=== PATIENT | female | born 1955 | race Caucasian/White ===

== ENCOUNTER 2016-07-26 04:59 | Day surgery (SDC) | payer OTHER ==
[~2016-07-26] VITALS: Ht 172.7 cm; Wt 71.9 kg
[2016-07-26] MEDS ORDERED: SODIUM CHLORIDE 0.9% 1,000ML IVBOLUS ONE (05:30)
[2016-07-26] MEDS ORDERED: MORPHINE SULFATE 4 MG/ML, 1ML IVPush PRN (05:30)
[2016-07-26] MEDS ORDERED: ONDANSETRON 2MG/ML, 2ML IVPush ONE (05:30)
[2016-07-26] MEDS ORDERED: SODIUM CHLORIDE FLUSH 10ML SYR IVF ONE (05:30)
[2016-07-26] MEDS ORDERED: MORPHINE SULFATE 4 MG/ML, 1ML ONE (05:37)
[2016-07-26] MEDS ORDERED: ONDANSETRON 2MG/ML, 2ML ONE ×2 (05:37→11:10)
[2016-07-26 06:13] LABS: BLOOD UREA NITROGEN 13 mg/dL (7-18)
[2016-07-26] MEDS ORDERED: OMNIPAQUE 350 MG/ML, 100ML BOTTLE ONE (06:29)
[2016-07-26] MEDS ORDERED: CEFOTETAN PMX 1GM/50ML 50 ML IV ONE (07:00)
[2016-07-26] MEDS ORDERED: CEFOTETAN PMX 1GM/50ML 50 ML ONE (07:06)
[2016-07-26] MEDS ORDERED: SODIUM CHLORIDE 0.9% 1,000 ML IV ONE (07:27)
[2016-07-26] MEDS ORDERED: ONDANSETRON 2MG/ML, 2ML IVPush PRN ×3 (07:30→12:00)
[2016-07-26] MEDS ORDERED: HYDROmorphone 1 MG/ML, 1ML IVPush PRN (07:30)
[2016-07-26] MEDS ORDERED: SODIUM CHLORIDE FLUSH 10ML SYR IVF PRN (07:30)
[2016-07-26 08:19] VITALS: BP 122/74
[2016-07-26] MEDS ORDERED: SCOPOLAMINE PATCH, 1.5MG PATCH.TD72 TD ONE ×2 (08:43→10:58)
[2016-07-26 09:40] VITALS: BP 122/74
[2016-07-26] MEDS ORDERED: FENTANYL PF 250 MCG/5ML ONE (10:19)
[2016-07-26] MEDS ORDERED: MIDAZOLAM 1 MG/ML, 2ML ONE (10:19)
[2016-07-26] MEDS ORDERED: BUPIVACAINE/PF-EPI 0.5% 1:200K ONE (10:42)
[2016-07-26] MEDS ORDERED: BUPIVACAINE/PF-EPI 0.5% 1:200K INFIL ONE (10:51)
[2016-07-26] MEDS ORDERED: ACETAMINOPHEN 325 MG TABLET PO PRN (11:00)
[2016-07-26] MEDS ORDERED: HYDROcodone/APAP 7.5-325MG/15ML UDC PO PRN (11:00)
[2016-07-26] MEDS ORDERED: LABETALOL 5MG/ML, 20ML IV PRN (11:00)
[2016-07-26] MEDS ORDERED: hydrALAzine 20 MG/ML, 1ML IV PRN (11:00)
[2016-07-26] MEDS ORDERED: FENTANYL PF 100 MCG/2ML IV PRN (11:00)
[2016-07-26] MEDS ORDERED: PROMETHAZINE 25 MG/ML, 1ML IV PRN (11:00)
[2016-07-26] MEDS ORDERED: MEPERIDINE/PF 25MG/0.5ML IVPush PRN (11:00)
[2016-07-26] MEDS ORDERED: OXYcodone 5 MG/5 ML ORAL.SOL UDC PO PRN ×2 (11:00→12:00)
[2016-07-26] MEDS ORDERED: EPHEDRINE 50 MG/ML, 1ML IVPush PRN (11:00)
[2016-07-26] MEDS ORDERED: MIDAZOLAM 1 MG/ML, 2ML IV PRN (11:00)
[2016-07-26] MEDS ORDERED: HYDROmorphone 1 MG/ML, 1ML IV PRN (11:00)
[2016-07-26] MEDS ORDERED: PROPOFOL 10 MG/ML, 20ML ONE (11:10)
[2016-07-26] MEDS ORDERED: CEFOTETAN 2 GM ONE (11:10)
[2016-07-26] MEDS ORDERED: SUCCINYLCHOLINE 20 MG/ML, 10ML ONE (11:10)
[2016-07-26] MEDS ORDERED: ROCURONIUM 10 MG/ML ONE (11:10)
[2016-07-26] MEDS ORDERED: PROPOFOL 10 MG/ML, 50ML ONE (11:10)
[2016-07-26] MEDS ORDERED: KETOROLAC 30 MG/1 ML ONE (11:10)
[2016-07-26] MEDS ORDERED: DEXAMETHASONE 4 MG/ML, 1ML ONE (11:10)
[2016-07-26] MEDS ORDERED: SUGAMMADEX 200 MG/2 ML IVPush ONE (11:10)
[2016-07-26] MEDS ORDERED: LACTATED RINGERS 1,000 ML IV SCH (11:54)
[2016-07-26] MEDS ORDERED: DIPHENHYDRAMINE 50 MG/ML, 1ML IVPush PRN (12:00)
[2016-07-26] MEDS ORDERED: HYDROmorphone 2 MG/ML, 1ML IVPush PRN (12:00)
[2016-07-26 14:05] VITALS: BP 102/66
[2016-07-26] MEDS ORDERED: OXYC5CAP4 PO (14:11)
[2016-07-26] MEDS ORDERED: PROM25TA10 PO (14:13)
[2016-07-26 15:05] VITALS: BP 108/67
== END 2016-07-26 15:33 ==
LOC: ED 05:43 → EDIP 07:27 → OR 07:27 → UNDOADMIN 07:27 → 4NOR 08:18 → EDIP 08:18 → 4NOR 08:20 → OR 15:33 → UNDODISIN 15:33
PROVIDERS: ATTEND Surgery
DX: K35.80 Unspecified acute appendicitis (principal); K21.9 Gastro-esophageal reflux disease without esophagitis; Z88.8 Allergy status to other drugs, medicaments and biological substances
CPT/HCPCS: 36415; 44970; 74177; 80048; 81001; 82040; 83605; 85025; 87040; 87086; 88304; 93005; 96361; 96365; 96375; 99285; J0330; J1100; J1885; J2250; J2405; J2704; J3010; J7030; Q9967; S0074

== ENCOUNTER 2016-10-31 14:24 | Emergency (ER) | payer OTHER ==
[~2016-10-31] VITALS: Ht 172.7 cm; Wt 76.2 kg
[~2016-10-31 14:24] MED LIST: OXYC5CAP2 PO; PROM25TA10 PO
[2016-10-31 15:20] LABS: HEMATOCRIT 44.5 % (34.6-47.8); HEMOGLOBIN 15.2 g/dL (11.7-16.4)
[2016-10-31] MEDS ORDERED: SODIUM CHLORIDE 0.9% 1,000ML IVBOLUS ONE ×2 (15:30→16:30)
[2016-10-31] MEDS ORDERED: ONDANSETRON 2MG/ML, 2ML IVPush ONE (15:30)
[2016-10-31] MEDS ORDERED: SODIUM CHLORIDE FLUSH 10ML SYR IVF ONE ×2 (15:30→16:30)
[2016-10-31 15:34] LABS: ASPARTATE AMINO TRANSFERASE 22 U/L (15-37); BLOOD UREA NITROGEN 24 mg/dL (7-18)
[2016-10-31] MEDS ORDERED: MULT-6 PO (16:49)
[2016-10-31] MEDS ORDERED: LOPE2CAP94 PO (16:49)
[2016-10-31 18:15] LABS: PATH.CAST-FLAG NOT PRESENT; SPERM-FLAG NOT PRESENT; SRC-FLAG NOT PRESENT; XTAL-FLAG NOT PRESENT; YLC-FLAG NOT PRESENT
[2016-10-31 19:55] VITALS: BP 134/59
== END 2016-10-31 19:58 | disposition home or self-care (01) ==
LOC: ED 19:52
DX: R19.7 Diarrhea, unspecified (principal)
CPT/HCPCS: 36415; 76700; 80053; 81001; 85025; 87086; 96360; 99285; J7030

== ENCOUNTER → 2017-01-30 | Outpatient (CLI) | payer OTHER ==
[~2017-01-30] MED LIST changes: +LOPE2CAP94 PO; +MULT-6 PO
== END | disposition home or self-care (01) ==
LOC: CFH 10:37
PROVIDERS: ATTEND Family Medicine
DX: Z13.820 Encounter for screening for osteoporosis (principal); M85.80 Other specified disorders of bone density and structure, unspecified site; Z78.0 Asymptomatic menopausal state
CPT/HCPCS: 77080